=== PATIENT | female | born 1970 | race Caucasian/White ===

== ENCOUNTER → 2019-01-27 12:55 | Outpatient (CLI) | payer OTHER, SELFPAY ==
--- NOTE | 2019-01-27 | DI.MG.S_ITS ---
BILATERAL DIGITAL SCREENING MAMMOGRAM 3D/2D WITH CAD: 01/27/2019 CLINICAL: Routine screening. Comparison is made to exams dated: 12/15/2017 mammogram, 12/05/2016 mammogram - [facility], and 05/11/2016 mammogram - [facility]. The tissue of both breasts is heterogeneously dense. This may lower the sensitivity of mammography. Current study was also evaluated with a Computer Aided Detection (CAD) system. There are new linear fine calcifications in the left breast anterior depth superior region seen on the mediolateral oblique view only. No other significant masses, calcifications, or other findings are seen in either breast. IMPRESSION: INCOMPLETE: NEEDS ADDITIONAL IMAGING EVALUATION The new linear fine calcifications in the left breast are indeterminate. Mediolateral, spot magnification, and additional views are recommended. This exam was interpreted at Station ID: [id number]. NOTE: For mammograms, a report in lay terms will be sent to the patient. Approximately 15% of breast malignancies will not be visualized mammographically. In the management of a palpable breast mass, a negative mammogram must not discourage biopsy of a clinically suspicious lesion. Electronically Signed By: Giacomo butt/mounika:01/27/2019 16:19:06 letter sent: Additional Imaging Needed ACR BI-RADS Category 0: Incomplete 3340F
== END ==
PROVIDERS: PCP Family Medicine; Visit Provider Family Medicine
DX: Z12.31 Encounter for screening mammogram for malignant neoplasm of breast (principal)
CPT/HCPCS: 77063; 77067

== ENCOUNTER → 2019-02-13 14:43 | Outpatient (CLI) | payer OTHER, SELFPAY ==
--- NOTE | 2019-02-13 14:44 | DI.MG.S_ITS ---
UNILATERAL LEFT DIGITAL DIAGNOSTIC MAMMOGRAM 3D/2D WITH ADDITIONAL VIEWS: 02/13/2019 CLINICAL: Additional evaluation requested from prior study. Comparison is made to exams dated: 01/27/2019 mammogram and 12/15/2017 mammogram - [facility]. The tissue of left breast is heterogeneously dense. This may lower the sensitivity of mammography. There are loosely grouped fine and rim-like microcalcifications in the left breast anterior depth superior region. No other significant masses or calcifications are seen in the breast. IMPRESSION: The calcifications in the left breast are most consistent with milk of calcium and appear benign. There is no mammographic evidence of malignancy. Return to annual mammogram screening schedule is recommended. This exam was interpreted at Station ID: [id number]. NOTE: For mammograms, a report in lay terms will be sent to the patient. Approximately 15% of breast malignancies will not be visualized mammographically. In the management of a palpable breast mass, a negative mammogram must not discourage biopsy of a clinically suspicious lesion. Electronically Signed By: Gaviota dean/:02/13/2019 15:46:20 letter sent: Normal Exam ACR BI-RADS Category 2: Benign Finding(s) 3342F
== END ==
PROVIDERS: PCP Family Medicine; Visit Provider Family Medicine
DX: R92.0 Mammographic microcalcification found on diagnostic imaging of breast (principal)
CPT/HCPCS: 77065; G0279

== ENCOUNTER 2019-02-25 12:25 | Day surgery (SDC) | payer OTHER, SELFPAY ==
[2019-02-25] VITALS (13 sets, daily range): BP systolic 84–112; BP diastolic 42–64; PULSE 73–89; RESP 8–16; TEMP 36–36.7; O2SAT 94–100; BMI 25.1
[2019-02-25] MEDS: SODIUM CHLORIDE 0.9% 1,000 ML 200 ML IV ×2 (14:46→18:16)
--- NOTE | 2019-02-25 15:16 | PM.HP.1 ---
History of Present Illness Date Patient Seen: 02/25/19 Time Patient Seen: 15:16 Chief complaint: [id number] Narrative: Patient seen and examined Unchanged since recent surgical visit Plan for screening colonoscopy did Risks and benefits including bleeding, , perforation, hypoxia, missed lesion all discussed Patient may perceive Patient History Family & Social History Social History: household members spouse Tobacco & Substance use: Smoking Status Never smoker alcohol intake current Meds Home Medications Medication Instructions Recorded Confirmed Type multivitamin tablet 1 tab PO DAILY 11/18/18 02/25/19 History calcium carbonate 500 mg calcium 250 mg PO TID tab 01/20/19 02/25/19 History (1,250 mg) tablet cholecalciferol (vitamin D3) 1,000 1,000 unit PO DAILY 01/20/19 02/25/19 History unit capsule Allergies Allergy/AdvReac Type Severity Reaction Status Date / Time No Known Drug Allergies Allergy Verified 02/25/19 14:44
[2019-02-25] MEDS: fentaNYL 250 MCG/5 ML INJ IV (15:36)
[2019-02-25] MEDS: MIDAZOLAM 5 MG/5 ML VIAL IV (15:37)
[2019-02-25] MEDS: GLUCAGON,HUMAN RECOMBINANT 1 MG/ML VIAL IV (16:02)
--- NOTE | 2019-02-25 16:45 | PM.OP.ENDO ---
Operative Date/Time/Diagnoses Date of procedure: 02/25/19 Time of procedure: 16:45 Pre-op diagnosis: Colorectal cancer screening Post-op diagnosis: same Procedure & Clinicians Study performed: Colonoscopy -incomplete, advanced to the level of hepatic flexure Same procedure as scheduled: Yes Indications: 49-year-old woman without prior history of colonoscopy -recently her father was diagnosed with stage IV colorectal cancer. In addition she has a brother in his early 50s was diagnosed with multiple colon polyps. As a consequence she is here for screening colonoscopy Surgeon: Marc Sterling Procedure Notes SCOAP/Timeout: completed Procedure in detail: The patient was brought to the endoscopy suite a time-out was completed. She was sedated over the course of the lengthy procedure her total sedation requirements was 14 mg of midazolam and 350 mg of fentanyl. 160 cm colonoscope was advanced through the rectum rectosigmoid junction through the folds of the colon without much difficulty. However upon reaching the hepatic flexure -identified by significant liver shadowing. There appeared to be a very tight fold in the colon. Multiple attempts to advance beyond this were not successful these multiple external abdominal pressure maneuver. Placing the patient in the supine, prone, as well as left and right decubitus position. The tight curved tendon was not associated with any mucosal lesion. There was some bulging into the lumen that appeared to either be from a submucosal lipoma or external compression. Multiple attempts including using a stiffener, decompressing the entire sigmoid colon, backing out and re-advancing were all tried. Eventually the scope was withdrawn and replaced with a smaller lumen pediatric colonoscope. This was not able to be advanced either. Ultimately a 2nd surgeon came to assist -together with 1 surgeon advancing the scope in the other driving with both orientation wheeled -again there was no success and the procedure was abandoned. The pediatric scope was slowly withdrawn while visualizing the mucosa. It was retroflexed in the distal rectum no mucosal lesions were identified along the entire tract with colon and rectal Prep was adequate Scope withdrawal time: na Sedation minutes: 99 Specimen(s): none sent Complications: none Impression: -markedly tight hepatic flexure unable to negotiate with colonoscope -no mucosal based lesion Plan for aftercare: Double contrast barium enema Follow up: weeks Disposition: PACU
== END 2019-02-25 18:44 | disposition home or self-care (01) ==
PROVIDERS: PCP Family Medicine; Visit Provider Surgery
PROC: 0DJD8ZZ Inspection of Lower Intestinal Tract, Via Natural or Artificial Opening Endoscopic (ICD-10-PCS; CPT 45378; principal; 2019-02-25 16:00)
DX: Z12.11 Encounter for screening for malignant neoplasm of colon (principal); Z80.0 Family history of malignant neoplasm of digestive organs
CPT/HCPCS: 45378; 99152; 99153; J1610; J2250; J3010

== ENCOUNTER → 2019-02-26 10:13 | Outpatient (CLI) | payer OTHER, SELFPAY ==
--- NOTE | 2019-02-26 10:14 | DI.RAD.S_ITS ---
PROCEDURE: FL ABDOMEN 1V (BARIUM ENEMA) INDICATIONS: incomplete/failed colonoscopy TECHNIQUE: One view of the abdomen acquired. COMPARISON: None. FINDINGS: Surgical changes and devices: None. Bowel: Bowel gas pattern is normal but there appears to be retained stool in portions of the transverse colon and descending colon. The patient specifically stated that she had not received instructions for bowel preparation for this anticipated study today. Soft tissues: No suspicious abdominal calcifications. Visualized solid organ contours appear normal in size. Bones: No suspicious bony lesions. IMPRESSION: The patient reports abscess of bowel preparation for this anticipated air contrast barium enema study, and there does appear to be retained stool within portions of the transverse colon and descending colon. The study will be rescheduled and bowel preparation education was provided. Dictated by: Mohamud Brown M.D. on 02/26/2019 at 12:23 Approved by: Mohamud Brown M.D. on 02/26/2019 at 12:25
== END ==
PROVIDERS: PCP Family Medicine; Visit Provider Surgery
DX: R93.3 Abnormal findings on diagnostic imaging of other parts of digestive tract (principal)
CPT/HCPCS: 74018

== ENCOUNTER → 2019-02-27 07:58 | Outpatient (CLI) | payer OTHER, SELFPAY ==
--- NOTE | 2019-02-27 | DI.RAD.S_ITS ---
PROCEDURE: FL BARIUM ENEMA W AIR CONTRAST INDICATIONS: FAILED COLONOSCOPY. Family history of colon cancer. COMPARISON: None. FINDINGS: KUB: Pre-procedural marketing planning manager film demonstrates a normal bowel gas pattern. No suspicious abdominal calcifications. Visualized solid organ contours are normal in size. No suspicious bony lesions. Colon: There is adequate air-contrast opacification from the rectum to the cecum. No strictures, ulcers, polyps, or masses are seen. Haustral folds are normal in thickness throughout. No diverticula. Normal appendix. The transverse colon is somewhat redundant taking a sharp hairpin turn in the mid transverse colon. IMPRESSION: Negative exam. No mass or polyp identified. Dictated by: Mike Fall M.D. on 02/27/2019 at 11:03 Approved by: Mike Fall M.D. on 02/27/2019 at 11:07
== END ==
PROVIDERS: PCP Family Medicine; Visit Provider Surgery
DX: Z12.11 Encounter for screening for malignant neoplasm of colon (principal); Z80.0 Family history of malignant neoplasm of digestive organs
CPT/HCPCS: 74280

== ENCOUNTER → 2020-03-19 14:41 | Outpatient (CLI) | payer OTHER, SELFPAY ==
--- NOTE | 2020-03-19 14:43 | DI.MG.S_ITS ---
BILATERAL DIGITAL SCREENING MAMMOGRAM 3D/2D WITH CAD: 03/19/2020 CLINICAL: Routine screening. Comparison is made to exams dated: 01/27/2019 mammogram, 12/15/2017 mammogram, and 12/05/2016 mammogram - [facility]. The tissue of both breasts is heterogeneously dense. This may lower the sensitivity of mammography. Current study was also evaluated with a Computer Aided Detection (CAD) system. No significant masses, calcifications, or other findings are seen in either breast. There has been no significant interval change. IMPRESSION: NEGATIVE There is no mammographic evidence of malignancy. A 1 year screening mammogram is recommended. This exam was interpreted at Station ID: [id number]. NOTE: For mammograms, a report in lay terms will be sent to the patient. Approximately 15% of breast malignancies will not be visualized mammographically. In the management of a palpable breast mass, a negative mammogram must not discourage biopsy of a clinically suspicious lesion. Electronically Signed By: Guanakito mabry/mounika:03/19/2020 15:07:50 letter sent: Normal Exam ACR BI-RADS Category 1: Negative 3341F
== END ==
PROVIDERS: PCP Family Medicine; Referring Provider Family Medicine; Visit Provider Family Medicine
DX: Z12.31 Encounter for screening mammogram for malignant neoplasm of breast (principal)
CPT/HCPCS: 77063; 77067

== ENCOUNTER → 2020-11-25 12:30 | Outpatient (CLI) | payer OTHER, SELFPAY ==
[2020-11-25] MEDS: COVID-19 VACC, Ad26(JANSSEN)/PF 0.5 ML IM (12:37)
== END ==
PROVIDERS: PCP Family Medicine; Visit Provider Internal Medicine
DX: Z23 Encounter for immunization (principal)
CPT/HCPCS: 0031A; 91303

== ENCOUNTER → 2021-04-27 16:48 | Outpatient (CLI) | payer OTHER, SELFPAY | PROVIDERS: PCP Family Medicine; Referring Provider Family Medicine; Visit Provider Family Medicine | DX: N63.0 Unspecified lump in unspecified breast (principal); Z53.8 Procedure and treatment not carried out for other reasons ==

== ENCOUNTER → 2021-05-18 12:00 | Outpatient (CLI) | payer OTHER, SELFPAY ==
--- NOTE | 2021-05-18 12:01 | DI.US.S_ITS ---
ULTRASOUND OF LEFT BREAST: 05/18/2021 CLINICAL: Palpable left breast lump. Comparison is made to exams dated: 05/18/2021 mammogram, 03/19/2020 mammogram, 02/13/2019 mammogram, 01/27/2019 mammogram, 12/15/2017 mammogram, and 12/05/2016 mammogram - [facility]. Color flow ultrasound of the left breast was performed. Ge scale images of the real-time examination were reviewed. Multiple cysts are seen in the left breast. In the 11 o'clock position 3 centimeters from the nipple there is a 1.3 x 0.6 x 0.8 centimeter cyst. In the 12 o'clock position 5 centimeters from the nipple there is a 0.6 x 0.6 x 0.7 well-circumscribed oval nodule with no lobulations and posterior acoustic enhancement consistent with a fibroadenoma. In the 1 o'clock position 3 centimeters from the nipple there is a 1.9 x 1.0 x 2.1 centimeter cyst. In the 2 o'clock position 2 centimeters from the nipple there are 2 cysts measuring 2.8 x 1.4 x 1.4 centimeters. In the 2 o'clock position 3 centimeters from the nipple there is a minimally complicated cyst measuring 0.5 x 0.4 x 0.5 centimeters and a hypoechoic well-circumscribed oval focus measuring 0.4 x 0.4 x 0.4 centimeters likely a fibroadenoma. In the 1 o'clock position 1 centimeter from the nipple there is a 2.9 x 1.5 x 2.9 centimeter cyst. IMPRESSION: BENIGN Fibrocystic disease and fibroadenomas. There is no sonographic evidence of malignancy. A 1 year screening mammogram is recommended. This exam was interpreted at Station ID: [id number]. Electronically Signed By: Raul Rosario acr/:05/18/2021 13:50:36 letter sent: Clinical Evaluation Ultrasound BI-RADS: 2 Benign
--- NOTE | 2021-05-18 12:01 | DI.MG.S_ITS ---
BILATERAL DIGITAL DIAGNOSTIC MAMMOGRAM 3D/2D: 05/18/2021 CLINICAL: Left breast lump. Comparison is made to exams dated: 03/19/2020 mammogram, 02/13/2019 mammogram, 01/27/2019 mammogram, and 12/15/2017 mammogram - [facility]. The tissue of both breasts is heterogeneously dense. This may lower the sensitivity of mammography. There are multiple new areas of 1 cm to 2.5 cm round simple cysts with a circumscribed margin in the left breast superior lateral quadrant middle depth. No other significant masses, calcifications, or other findings are seen in either breast. IMPRESSION: INCOMPLETE: NEEDS ADDITIONAL IMAGING EVALUATION The multiple new areas of 1 cm to 2.5 cm round simple cysts in the left breast are indeterminate. An ultrasound is recommended. US will be performed and dictated separately. This exam was interpreted at Station ID: [id number]. NOTE: For mammograms, a report in lay terms will be sent to the patient. Approximately 15% of breast malignancies will not be visualized mammographically. In the management of a palpable breast mass, a negative mammogram must not discourage biopsy of a clinically suspicious lesion. Electronically Signed By: Raul Rosario acr/:05/19/2021 08:18:32 Entry: - 05/19/2021 09:05:26 ACR BI-RADS Category 0: Incomplete 3340F
== END ==
PROVIDERS: PCP Family Medicine; Referring Provider Family Medicine; Visit Provider Family Medicine
DX: D24.2 Benign neoplasm of left breast (principal); R92.8 Other abnormal and inconclusive findings on diagnostic imaging of breast; N60.12 Diffuse cystic mastopathy of left breast
CPT/HCPCS: 76642; 77066; G0279

== ENCOUNTER → 2021-06-30 07:34 | Outpatient (CLI) | payer OTHER, SELFPAY ==
[2021-06-30 08:18] LABS: COVID19 -Nasal RAPID Negative (Negative)
== END ==
PROVIDERS: PCP Family Medicine; Visit Provider Nurse Practitioner Family
DX: J02.9 Acute pharyngitis, unspecified (principal)
CPT/HCPCS: 87635

== ENCOUNTER → 2021-10-25 07:14 | Outpatient (CLI) | payer OTHER, SELFPAY ==
[2021-10-25 08:36] LABS: Add Manual Diff / Slide Review NO; Basophils Absolute Auto 0 /uL (0-100); Basophils Percent Auto 0.7 % (0-2); Eosinophils Absolute Auto 100 /uL (0-450); Eosinophils Percent Auto 2.1 % (2-4); Hematocrit 35.5 % (36-46); Hemoglobin 11.9 g/dL (12.0-16.0); Lymphocytes Absolute Auto 1700 /uL (1100-4500); Lymphocytes Percent Auto 25.8 % (25-40); Mean Corpuscular HGB Conc 33.5 % (30-36); Mean Corpuscular Hemoglobin 31.1 PG (26-34); Mean Corpuscular Volume 92.8 fL (80-100); Monocytes Absolute Auto 500 /uL (0-900); Monocytes Percent Auto 7.3 % (3-14); Neutrophils Absolute Auto 4200 /uL (1500-7000); Neutrophils Percent Auto 64.1 % (50-75); Platelet Count 326 X10^3/uL (150-400); Red Blood Cell Count 3.82 X10^6/uL (4.0-5.2); Red Cell Distribution Width 12.7 % (11.6-14.8); White Blood Cell Count 6.6 X10^3/uL (4.5-11.0)
[2021-10-25 08:45] LABS: Alanine Aminotransferase 12 IU/L (<35); Albumin 4.3 g/dL (3.5-5.0); Albumin Globulin Ratio 1.2 (1.0-2.8); Alkaline Phosphatase 59 U/L (38-126); Aspartate Aminotransferase 22 IU/L (14-36); BUN Creatinine Ratio 20.3 (6-22); Bilirubin Total 0.5 mg/dL (0.2-1.3); Blood Urea Nitrogen 16 mg/dL (7-17); Calcium 8.8 mg/dL (8.4-10.2); Carbon Dioxide 24 mmol/L (22-32); Chloride 110 mmol/L (98-107); Cholesterol 143 mg/dL (140-199); Estimated Glomerular Filt Rate > 60.0 mL/min (>60); Globulin 3.5 g/dL (1.7-4.1); Glucose 86 mg/dL (70-100); HDL Cholesterol 46 mg/dL (40-60); HEMOLYSIS < 15 (0-50); LDL Cholesterol Calculated 84 mg/dL (<100); Potassium 3.4 mmol/L (3.4-5.1); Sodium 142 mmol/L (137-145); Total Protein 7.8 g/dL (6.3-8.2); Triglycerides 67 mg/dL (35-150)
[2021-10-25 09:22] LABS: TSH w/ Reflex to FT4 3.26 uIU/mL (0.47-4.68)
[2021-10-26 19:16] LABS: SS A Ro Sjogrens Antibody < 0.2 AI (0.0-0.9); SS B La Sjogrens Antibody < 0.2 AI (0.0-0.9)
== END ==
PROVIDERS: PCP Family Medicine; Referring Provider Family Medicine; Visit Provider Family Medicine
DX: R23.2 Flushing (principal); R68.2 Dry mouth, unspecified
CPT/HCPCS: 36415; 80053; 80061; 84443; 85025; 86235

== ENCOUNTER → 2022-09-25 08:09 | Outpatient (CLI) | payer OTHER, SELFPAY ==
--- NOTE | 2022-09-25 08:10 | DI.MG.S_ITS ---
BILATERAL DIGITAL SCREENING MAMMOGRAM 3D/2D WITH CAD: 09/25/2022 CLINICAL: Routine screening. Comparison is made to exams dated: 05/18/2021 mammogram, 05/18/2021 mammogram, and 03/19/2020 mammogram - [facility]. Both breasts are heterogeneously dense, which may obscure small masses (category c / 51-75% glandular tissue). Current study was also evaluated with a Computer Aided Detection (CAD) system. There are benign calcifications in the left breast. No significant masses, calcifications, or other findings are seen in either breast. There has been no significant interval change. IMPRESSION: BENIGN There is no mammographic evidence of malignancy. A 1 year screening mammogram is recommended. Based on the Tyrer Cuzick model (a risk assessment model) the patient's lifetime risk is 9.5% and her 10 year risk is 2.2%. According to the ACR, ACS, and NCCN guidelines, an annual breast MRI exam along with mammogram is recommended if the patient's lifetime risk is 20% or greater. This exam was interpreted at Station ID: [id number]. NOTE: For mammograms, a report in lay terms will be sent to the patient. Approximately 15% of breast malignancies will not be visualized mammographically. In the management of a palpable breast mass, a negative mammogram must not discourage biopsy of a clinically suspicious lesion. Electronically Signed By: Gaviota dean/mounika:09/25/2022 14:51:16 letter sent: Normal Exam ACR BI-RADS Category 2: Benign Finding(s) 3342F
== END ==
PROVIDERS: PCP Family Medicine; Referring Provider Family Medicine; Visit Provider Family Medicine
DX: Z12.31 Encounter for screening mammogram for malignant neoplasm of breast (principal)
CPT/HCPCS: 77063; 77067

== ENCOUNTER → 2023-07-06 11:24 | Outpatient (CLI) | payer OTHER, SELFPAY ==
--- NOTE | 2023-07-06 11:26 | DI.US.S_ITS ---
ULTRASOUND OF LEFT BREAST AND AXILLA: 07/06/2023 CLINICAL: Palpable left breast lump. Comparison is made to exams dated: 07/06/2023 mammogram, 09/25/2022 mammogram, 05/18/2021 ultrasound, 05/18/2021 mammogram, 05/18/2021 mammogram, and 03/19/2020 mammogram - [facility]. Color flow and real-time ultrasound of the left breast axilla were performed. Ge scale images of the real-time examination were reviewed. There is a 0.8 cm x 0.5 cm x 0.6 cm wider than tall oval mass in the left breast at 1 o'clock middle depth 3 cm from the nipple. This oval mass is hypoechoic. This abnormality is increased in size, more prominent, and represents a change and correlates as palpated and with area of clinical concern. Color flow imaging demonstrates that there is an adjacent vascularity. This lesion was previously described at the 2 o'clock 3cm from the nipple. There also is a 0.8 cm x 0.4 cm x 0.6 cm wider than tall oval mass with a circumscribed margin in the left breast at 12 o'clock middle depth 5 cm from the nipple. This oval mass is hypoechoic and heterogeneously echogenic. This abnormality is not significantly changed and correlates with ultrasound findings. Color flow imaging demonstrates that there is no vascularity present. Additionally, there is a wider than tall cluster of oval cysts in the left breast at 1 o'clock middle depth. This cluster of oval cysts is anechoic with a well-defined boundary and posterior acoustic enhancement. These abnormalities are increased in size and more prominent and correlates as palpated, with mammography findings, and area of clinical concern. Color flow imaging demonstrates that there is no vascularity present. No significant abnormalities were seen sonographically in the left axilla. IMPRESSION: SUSPICIOUS OF MALIGNANCY The 0.8 cm x 0.5 cm x 0.6 cm wider than tall oval mass in the left breast at 1 o'clock middle depth is at a low suspicion for malignancy. An ultrasound guided biopsy is recommended. The 0.8 cm x 0.4 cm x 0.6 cm wider than tall oval mass in the left breast at 12 o'clock middle depth resembles a fibroadenoma and is probably benign. The wider than tall cluster of oval simple cysts in the left breast at 1 o'clock middle depth is benign. No sonographic abnormalities identified in the axilla. No axillary adenopathy. Findings and recommendations were discussed with the patient by Dr. Chester during today's examination. This exam was interpreted at Station ID: [id number]. Electronically Signed By: Zak Clinton M.D. at/:07/09/2023 15:10:27 Entry: - 07/09/2023 15:10:27 letter sent: Biopsy Required Ultrasound BI-RADS: 4a Low suspicion for malignancy
--- NOTE | 2023-07-06 11:26 | DI.MG.S_ITS ---
BILATERAL DIGITAL DIAGNOSTIC MAMMOGRAM 3D/2D: 07/06/2023 CLINICAL: Palpable left breast lump. Comparison is made to exams dated: 09/25/2022 mammogram, 05/18/2021 mammogram, 03/19/2020 mammogram, and 01/27/2019 mammogram - [facility]. Both breasts are heterogeneously dense, which may obscure small masses (category c / 51-75% glandular tissue). There are possible multiple oval focal asymmetries with an obscured margin in the left breast superior lateral quadrant middle depth. These are slightlly more prominent and correlate as palpated, with area of clinical concern, and triangle skin marker. No other significant masses, calcifications, or other findings are seen in either breast. IMPRESSION: INCOMPLETE: NEEDS ADDITIONAL IMAGING EVALUATION The possible multiple oval focal asymmetries in the left breast most likely are clustered cysts and are indeterminate. An ultrasound is recommended for further evaluation and is scheduled to immediately follow this examination. Based on the Tyrer Cuzick model (a risk assessment model) the patient's lifetime risk is 9.6% and her 10 year risk is 2.4%. According to the ACR, ACS, and NCCN guidelines, an annual breast MRI exam along with mammogram is recommended if the patient's lifetime risk is 20% or greater. This exam was interpreted at Station ID: [id number]. NOTE: For mammograms, a report in lay terms will be sent to the patient. Approximately 15% of breast malignancies will not be visualized mammographically. In the management of a palpable breast mass, a negative mammogram must not discourage biopsy of a clinically suspicious lesion. Electronically Signed By: Zak Clinton M.D. aty/:07/06/2023 18:16:03 ACR BI-RADS Category 0: Incomplete 3340F
== END ==
PROVIDERS: PCP Student in an Organized Health Care Education/Training Program; Referring Provider Student in an Organized Health Care Education/Training Program; Visit Provider Student in an Organized Health Care Education/Training Program
DX: N63.25 Unspecified lump in the left breast, overlapping quadrants (principal); R92.8 Other abnormal and inconclusive findings on diagnostic imaging of breast; N63.21 Unspecified lump in the left breast, upper outer quadrant; N60.02 Solitary cyst of left breast
CPT/HCPCS: 76642; 77066; G0279

== ENCOUNTER → 2023-08-09 12:50 | Outpatient (CLI) | payer OTHER, SELFPAY ==
--- NOTE | 2023-08-09 | DI.MG.S_ITS ---
UNILATERAL LEFT DIGITAL DIAGNOSTIC MAMMOGRAM 3D/2D - LEFT BREAST POST-PROCEDURE IMAGING FOR MARKER PLACEMENT: 08/09/2023 CLINICAL: Post left breast ultrasound biopsy, clip placement imaging. Comparison is made to exams dated: 07/06/2023 mammogram, 09/25/2022 mammogram, 05/18/2021 mammogram, 05/18/2021 mammogram, and 08/09/2023 ultrasound biopsy - [facility]. The left breast is heterogeneously dense, which may obscure small masses (category c / 51-75% glandular tissue). There is a vision marker clip in the appropriate position in the left breast at 1 o'clock middle depth is at the biopsy site. IMPRESSION: POST PROCEDURE MAMMOGRAM FOR MARKER PLACEMENT There was a successful vision marker clip placement in the left breast middle depth. This exam was interpreted at Station ID: [id number]. Electronically Signed By: Mike Fall M.D. slc/:08/09/2023 15:05:10 ACR BI-RADS Category Post-procedure mammogram for marker placement
--- NOTE | 2023-08-09 | PATH_ITS ---
[facility] Accession Number: [id number] No. of containers..01 Tissue . 01 Material submitted: . breast - LEFT BREAST 1:00 5CMFN MASS . 01 Diagnosis: Left Breast, 1 o'clock, 5 cm from Nipple, Image-Guided Core Biopsy: Focal atypical ductal hyperplasia and flat epithelial atypia. Ducta ectasia and fibrocystic change. Negative for malignancy. MRV 08/15/2023 1154 Local . 01 Comment: Initial and deeper sections are obtained and reviewed. . 01 Electronically signed: . Alicia Holland MD, Pathologist NPI- [id number] . 01 Gross description: . The specimen is received in formalin labeled with the patient's name, , and US BX breast, consists of multiple yellow to calzada soft tissue fragments aggregating to 1.4 x 1.1 x 0.2 cm. Inked green, filtered, and submitted entirely in cassette A1. . The specimen was removed on 08/09/2023 at 1357; time in formalin not provided; cold ischemic time cannot be calculated; and total fixation time is approximately 30 hours. ([id number]) /MRV 08/10/2023 1121 Local . 01 Pathologist provided ICD-10: N63.20 . 01 CPT . 015082 Specimen Comment: A courtesy copy of this report has been sent to [facility] Performed at: 01 [facility] [address] [place] [address], [place], [place] [id number] MD Giacomo Resendiz MD Phone: [phone]
--- NOTE | 2023-08-09 13:07 | DI.US.S_ITS ---
Patient Name: MEGAN TAY date: 1970 Sex: F Attending Physician: Nasim Lucia Indications: Date: 08/16/2023 11:45 At the request of: JESUS MCINTOSH Procedure: US bx breast perc w vac device ULTRASOUND GUIDED BIOPSY LEFT BREAST WITH MARKING DEVICE INSERTED AND POST DIGITAL MAMMOGRAPHIC IMAGIN08/09/2023 CLINICAL: Left breast mass. PATIENT CONSENT: Risks (minor bleeding, infection, vasovagal reaction and repeat procedure), benefits and alternatives were explained to the patient and written informed consent was obtained. Correlation is made to exams dated: 08/09/2023 mammogram, 07/06/2023 ultrasound, 07/06/2023 mammogram, 09/25/2022 mammogram, 05/18/2021 ultrasound, and 05/18/2021 mammogram - [facility]. An ultrasound guided biopsy using real-time ultrasound was performed for the 0.8 cm x 0.6 cm x 0.5 cm circumscribed oval cystic mass located in the left breast at 1 o'clock middle depth 3 cm from the nipple. This was described on the previous ultrasound report. The skin was prepped in the usual manner. Local anesthetic was administered to the access site. A skin celestino was made in the breast. The abnormality was approached from the lateral aspect. A 14 gauge biopsy needle was placed adjacent to the abnormality under ultrasound guidance. Once the needle was documented to be in the correct location, three cores were obtained using Bard Elevation. The abnormality colapsed with the first sample. A vision clip was inserted into the biopsy cavity. A skin adhesive was applied to the access site. Post procedure digital mammographic imaging demonstrates the location device at the targeted area. The specimens were sent to the laboratory for pathological analysis. The large simple cysts in the left breast 1:00 3 cm from the nipple measuring 3.2 cm and 3.6 cm were aspirated for pain relief. The cysts collapsed completely. No suspicious blood flow. Continued Report - Page 2 of 2 Patient Name: MEGAN TAY date: 1970 Sex: F Attending Physician: Nasim Lucia Indications: Date: 08/16/2023 11:45 At the request of: JESUS MCINTOSH Procedure: US bx breast perc w vac device IMPRESSION: ULTRASOUND GUIDED BIOPSY HIGH RISK BENIGN Ultrasound guided biopsy of the 0.8 cm cystic lesion in the left breast at 1 o'clock middle depth 3 cm from the nipple was successful with no apparent post procedure complications. The abnormality colapsed with the first sample. Pathology shows focal ADH and flat epithelial atypia. No malignancy. Surgical consultation recommended for this high risk benign lesion. A follow-up ultrasound in 6 months is recommended to demonstrate stability of the suspected mass at the left breast 12:00 5 cm from the nipple measuring 0.8 cm as previously described on the prior ultrasound. Given pathology results, surgical evaluation vs. additional biopsy could also be performed. Two large cysts in the left breast 1:00 3 cm from nipple were aspirated for pain relief. The cysts collapsed completely. Turbid brown fluid was obtained. These cysts are benign. This exam was interpreted at Station ID: [id number]. Mike Salomon M.D. [facility],/:08/16/2023 11:45:10
== END ==
LOC: US 12:51
PROVIDERS: PCP Student in an Organized Health Care Education/Training Program; Referring Provider Student in an Organized Health Care Education/Training Program; Visit Provider Student in an Organized Health Care Education/Training Program
DX: N60.02 Solitary cyst of left breast (principal); N60.92 Unspecified benign mammary dysplasia of left breast; N60.42 Mammary duct ectasia of left breast
CPT/HCPCS: 19083; 77065

== ENCOUNTER → 2024-02-14 07:30 | Outpatient (CLI) | payer OTHER, SELFPAY ==
--- NOTE | 2024-02-14 07:32 | DI.US.S_ITS ---
LIMITED ULTRASOUND OF LEFT BREAST: 02/14/2024 CLINICAL: 6 month follow up left breast. Comparison is made to exams dated: 08/09/2023 ultrasound biopsy, 08/09/2023 mammogram, 07/06/2023 ultrasound, 07/06/2023 mammogram, 09/25/2022 mammogram, and 05/18/2021 ultrasound - [facility]. Color flow and real-time ultrasound of the left breast 12-1 o'clock region were performed. Ge scale images of the real-time examination were reviewed. The mass in the left breast at 1 o'clock middle depth 3 cm from the nipple is no longer seen. This correlates with the previous biopsy. Vision biopsy clip is seen. The mass in the left breast at 12 o'clock middle depth 5 cm from the nipple is no longer seen. Simple benign cysts noted on cine clips. IMPRESSION: KNOWN BIOPSY PROVEN MALIGNANCY 1) Left breast 1:00 biopsied mass is no longer seen. Vision biopsy clip is seen. 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 Breast MRI may be helpful for further evaluation if excision is not pursued for this high risk lesion. 2) Left breast 12:00 mass is no longer seen and presumed benign. Exam findings were discussed with the patient. Patient reports continued discomfort in the left breast, most likely related to breast cysts. Mammogram due in 6 months. This exam was interpreted at Station ID: [id number]. Electronically Signed By: Mike Fall M.D. [facility] [place]/:02/14/2024 10:02:18 Entry: maryann - 02/14/2024 10:38:59 letter sent: Clinical Evaluation Ultrasound BI-RADS: 6 Known biopsy proven malignancy
== END ==
PROVIDERS: PCP Student in an Organized Health Care Education/Training Program; Referring Provider Student in an Organized Health Care Education/Training Program; Visit Provider Student in an Organized Health Care Education/Training Program
DX: R92.8 Other abnormal and inconclusive findings on diagnostic imaging of breast (principal); N63.25 Unspecified lump in the left breast, overlapping quadrants; N60.02 Solitary cyst of left breast
CPT/HCPCS: 76642

== ENCOUNTER → 2024-03-14 | Outpatient (CLI) | payer OTHER, SELFPAY ==
--- NOTE | 2024-03-14 07:23 | DI.MRI.S_ITS ---
BREAST MRI OF BOTH BREASTS: 03/14/2024 CLINICAL: Atypical Ductual Hyperplasia. TECHNIQUE: The patient was placed prone in a dedicated breast imaging coil. Precontrast axial STIR and 3D FLASH without fat saturation sequences were obtained. Both before and after bolus injection of contrast, sequential 1-minute axial 3D FLASH with fat saturation sequences for 3 time points, with subtraction images and maximum intensity projections (MIP's) generated. Delayed sagittal FLASH images with fat saturation were also obtained. 20 cc ProHance IV contrast. Computer-aided detection, including computer algorithm analysis of MRI image data for lesion detection and characterization, pharmacokinetic analysis, with further physician review for interpretation, was performed. COMPARISON: [facility], , US BREAST LT LIMITED, 02/14/2024, 8:36. [facility], , MM SCREENING MAMMO BI, 09/25/2022, 8:25. FINDINGS: Image quality: Excellent. There is moderate right, and marked left, nodular background parenchymal enhancement. Right breast: There are several nonenhancing ovoid and round T2 hyperintensities throughout the right breast, the largest in the anterior upper outer quadrant measuring 1.6 cm. No suspicious mass or non masslike enhancement. Left breast: Innumerable ovoid and round T2 hyperintensities throughout the breast, the largest in the central breast at a mid depth measures 2.2 cm. A 1.0 cm T1 and T2 hyperintense round structure with T2 shading is present at the 3 o'clock position, probably hemorrhagic or proteinaceous cyst. There is no suspicious mass or non masslike enhancement. Miscellaneous: No axillary or internal mammary chain adenopathy. The visible portions of the chest wall, liver, heart, and lungs appear normal. IMPRESSION: BENIGN No MR evidence of malignancy in either breast. Numerous bilateral breast cysts. No unique enhancement in the previously described area of left breast biopsy yielding high risk ADH. Continue annual screening. Consider alternating mammogram and screening breast MRI every six months given patient's high lifetime risk of breast cancer. BIRADS two, benign COMMENT: The imaging literature indicates that a negative contrast breast MRI examination has a high sensitivity and a moderate specificity for detecting and excluding invasive carcinomas to a detection threshold of 3-5 mm; nonetheless, appropriate clinical and mammographic follow-up are recommended. MRI is not sensitive for detecting DCIS (ductal carcinoma in situ) and may not detect large invasive neoplasms that show only minimal enhancement such as mucinous carcinoma. If there are suspicious calcifications or clinically worrisome palpable masses, then biopsy should still be considered. Invasive neoplasms can be hidden by co-existent and benign enhancement caused by mastitis, hormone therapy effects, radiation therapy, , and recent biopsy or surgery. False positive examinations can occur in a number of circumstances, including breasts that have recently been subject to invasive procedures and those that contain atypical ductal hyperplasia, hormonally stimulated glandular tissue, fat necrosis, or radial scars. This exam was interpreted at Station ID: [id number]. Electronically Signed By: Gaviota dean/:03/18/2024 16:06:36 letter sent: Normal Exam ACR BI-RADS Category 2: Benign Finding(s) [id number]
== END ==
LOC: MRI 07:23
PROVIDERS: PCP Student in an Organized Health Care Education/Training Program; Referring Provider Student in an Organized Health Care Education/Training Program; Visit Provider Student in an Organized Health Care Education/Training Program
DX: R92.8 Other abnormal and inconclusive findings on diagnostic imaging of breast (principal); N60.92 Unspecified benign mammary dysplasia of left breast; N63.20 Unspecified lump in the left breast, unspecified quadrant
CPT/HCPCS: 77049; A9579

== ENCOUNTER → 2024-09-26 06:43 | Outpatient (CLI) | payer OTHER, SELFPAY ==
--- NOTE | 2024-09-26 06:44 | DI.US.S_ITS ---
PROCEDURE: US PELVIC COMPLETE INDICATIONS: CERVICAL POLYP TECHNIQUE: Real-time scanning was performed of the pelvic organs, with image documentation. Additional endovaginal scanning was necessary due to incomplete visualization of the adnexal and endometrial structures by transabdominal scanning. COMPARISON: None. FINDINGS: Uterus: Uterus is retroverted and normal in size at 7.6 x 4.4 x 5.5 cm. The myometrium is homogeneous. The endometrium measures 2.2 mm combined thickness. No endometrial mass or fluid. Questionable 4 x 4 x 6 millimeter solid echogenic structure is noted within endocervical canal and show no gross vascularity. Ovaries: Bilateral ovaries are not visualized. No adnexal mass is seen. Other: No pathologic free abdominal or pelvic fluid. IMPRESSION: 1. Normal appearing endometrium. No discrete uterine fibroids. 2. 6 x 4 x 4 mm echogenic and solid appearing nodule seen within cervical canal which may represent a small polyp suggest [employer] correlation. 3. Bilateral ovaries are not visualized. No adnexal mass. We strive to produce accurate, complete, and clear reports of imaging services. To assist us in improving patient care, this report was composed using standard report templates and voice recognition software. Therefore, it may contain abnormal punctuation, insertions and/or omissions. Occasional wrong-word or sound-alike substitutions may occur. Though we review the report and make efforts to correct it, we do recommend that the report be read carefully in proper context to recognize any text inaccuracies. Dictated by: Denver Ellis M.D. on 09/26/2024 at 10:59 Approved by: Denver Ellis M.D. on 09/26/2024 at 11:05
== END ==
PROVIDERS: PCP Student in an Organized Health Care Education/Training Program; Referring Provider Student in an Organized Health Care Education/Training Program; Visit Provider Student in an Organized Health Care Education/Training Program
DX: N84.1 Polyp of cervix uteri (principal)
CPT/HCPCS: 76830; 76856